=== PATIENT | female | born 1990 | race Caucasian/White ===

== ENCOUNTER 2016-08-01 15:21 | Inpatient (IN) | payer OTHER ==
[~2016-08-01] VITALS: Ht 157.5 cm; Wt 58.2 kg
--- NOTE | 2016-08-01 16:43 | DIAGNOSTIC IMAGING REPORT ---
PROCEDURE: XR CHEST 1 VIEW INDICATION: SHORTNESS OF BREATH TECHNIQUE: Portable AP view 1605 hours. COMPARISON: None. FINDINGS: Allowing for overlying wires and electrodes, lungs are clear. Heart and mediastinum are normal. Thorax is normal. IMPRESSION: 1. Negative chest.
--- NOTE | 2016-08-01 19:39 | ED ORDER SUMMARY ---
..... Patient: TOBIN GOTTI OrderSheet [facility] VisitID: [id number] [place] [address] 26y, F Registration Date/Time: 08/01/2016 ORDER SHEET Weight: 61.2 kg (estimated) Allergies: Aspirin, Cipro, Vicodin GENERAL ORDERS: Rapid Influenza Screen (Nasal Pharyngeal) (SAP TRAINER) Urgent (15:50 08/01/2016 Juan PLEITEZ) (16:06 ABarnum R.N.) Chest 1V Urgent (15:52 08/01/2016 Juan PLEITEZ) (Ack 16:15 LTapper) (18:53 MCampbell) CBC w Diff Urgent (15:53 08/01/2016 Juan PLEITEZ) (15:56 ABarnum R.N.) CMP Urgent (15:53 08/01/2016 Juan PLEITEZ) (15:56 ABarnum R.N.) UA-Culture if indicated Urgent (15:53 08/01/2016 Juan PLEITEZ) (Ack 16:14 LTapper) (17:24 ABarnum R.N.) Amylase Urgent (15:53 08/01/2016 Juan PLEITEZ) (15:56 ABarnum R.N.) Lipase Urgent (15:53 08/01/2016 Juan PLEITEZ) (15:56 ABarnum R.N.) Urine Urgent (15:53 08/01/2016 Juan PLEITEZ) (Ack 16:14 LTapper) (18:28 ABarnum R.N.) Troponin-I Urgent (15:53 08/01/2016 Juan PLEITEZ) (15:56 ABarnum R.N.) Urine Drug Screen Urgent (15:53 08/01/2016 Juan PLEITEZ) (Ack 16:15 LTapper) (17:24 ABarnum R.N.) Chemical Machine Tender (Continuous) (16:10 08/01/2016 Juan PLEITEZ) (16:23 ABarnum R.N.) CPK Urgent (16:11 08/01/2016 Juan PLEITEZ) (Ack 16:14 LTapper) (16:52 ABarnum R.N.) Troponin-I Urgent (16:11 08/01/2016 Juan PLEITEZ) (Ack 16:14 LTapper) (16:52 ABarnum R.N.) Lactate, Serum Urgent (16:11 08/01/2016 Juan PLEITEZ) (Ack 16:14 LTapper) (18:28 ABarnum R.N.) PCT (Procalcitonin) Urgent (16:11 08/01/2016 Juan PLEITEZ) (Ack 16:14 LTapper) (16:52 ABarnum R.N.) EKG - ER Stat (16:11 08/01/2016 Juan PLEITEZ) (Ack 16:17 LTapper) (16:52 ABarnum R.N.) Pulse oximeter (16:11 08/01/2016 Juan PLEITEZ) (16:23 ABarnum R.N.) Oxygen (2 L/min) (NC) (16:11 08/01/2016 Juan PLEITEZ) (16:23 ABarnum R.N.) Blood Culture (No) (N/A) Urgent (18:56 08/01/2016 Juan PLEITEZ) (Ack 19:11 [employer] [facility] Client Resolution Specialist) (19:26 ABarnum R.N.) D-Dimer Urgent (19:08 08/01/2016 Juan PLEITEZ) (Ack 19:11 [employer] [facility] Client Resolution Specialist) (19:26 ABarnum R.N.) CTA Thorax w Cont (No) (N/A) Urgent (20:14 08/01/2016 Juan PLEITEZ) (Ack 20:23 LTapper) (21:04 MCampbell) MEDICATION ORDERS: IV FLUIDS: IV Saline Lock (15:53 08/01/2016 Juan PLEITEZ) (15:56 ABarnum R.N.) IV NS with Normal Saline 1 Liter: initial bolus 1000 mL (1000 mL/hr), then 1000 mL/hr for X1 (NOW); Shane (15:56 08/01/2016 ABarnum R.N. per protocol) (16:06 ABarnum R.N.) Naloxone IV 0.2 mg (NOW) (20:32 08/01/2016 Juan PLEITEZ) (20:39 Gabrielle Parr) ORDER SHEET NOTES: [Electronically signed by Miguel Angel Cedeño MD (16:04 08/02/2016)] [Electronically signed by Celia Velazquez R.N. (15:14 08/15/2016)] [Electronically locked/signed by Celia Velazquez R.N. (15:14 08/15/2016)]
--- NOTE | 2016-08-01 19:39 | ED ORDER SUMMARY ---
..... Patient: TOBIN GOTTI OrderSheet [facility] VisitID: [id number] [place] [address] 26y, F Registration Date/Time: 08/01/2016 ORDER SHEET Weight: 61.2 kg (estimated) Allergies: Aspirin, Cipro, Vicodin GENERAL ORDERS: Rapid Influenza Screen (Nasal Pharyngeal) (TICKET ATTENDANT) Urgent (15:50 08/01/2016 Juan PLEITEZ) (16:06 ABarnum R.N.) Chest 1V Urgent (15:52 08/01/2016 Juan PLEITEZ) (Ack 16:15 LTapper) (18:53 MCampbell) CBC w Diff Urgent (15:53 08/01/2016 Juan PLEITEZ) (15:56 ABarnum R.N.) CMP Urgent (15:53 08/01/2016 Juan PLEITEZ) (15:56 ABarnum R.N.) UA-Culture if indicated Urgent (15:53 08/01/2016 Juan PLEITEZ) (Ack 16:14 LTapper) (17:24 ABarnum R.N.) Amylase Urgent (15:53 08/01/2016 Juan PLEITEZ) (15:56 ABarnum R.N.) Lipase Urgent (15:53 08/01/2016 Juan PLEITEZ) (15:56 ABarnum R.N.) Urine Urgent (15:53 08/01/2016 Juan PLEITEZ) (Ack 16:14 LTapper) (18:28 ABarnum R.N.) Troponin-I Urgent (15:53 08/01/2016 Juan PLEITEZ) (15:56 ABarnum R.N.) Urine Drug Screen Urgent (15:53 08/01/2016 Juan PLEITEZ) (Ack 16:15 LTapper) (17:24 ABarnum R.N.) Client Relations Specialist (Continuous) (16:10 08/01/2016 Juan PLEITEZ) (16:23 ABarnum R.N.) CPK Urgent (16:11 08/01/2016 Juan PLEITEZ) (Ack 16:14 LTapper) (16:52 ABarnum R.N.) Troponin-I Urgent (16:11 08/01/2016 Juan PLEITEZ) (Ack 16:14 LTapper) (16:52 ABarnum R.N.) Lactate, Serum Urgent (16:11 08/01/2016 Juan PLEITEZ) (Ack 16:14 LTapper) (18:28 ABarnum R.N.) PCT (Procalcitonin) Urgent (16:11 08/01/2016 Juan PLEITEZ) (Ack 16:14 LTapper) (16:52 ABarnum R.N.) EKG - ER Stat (16:11 08/01/2016 Juan PLEITEZ) (Ack 16:17 LTapper) (16:52 ABarnum R.N.) Pulse oximeter (16:11 08/01/2016 Juan PLEITEZ) (16:23 ABarnum R.N.) Oxygen (2 L/min) (NC) (16:11 08/01/2016 Juan PLEITEZ) (16:23 ABarnum R.N.) Blood Culture (No) (N/A) Urgent (18:56 08/01/2016 Juan PLEITEZ) (Ack 19:11 [employer] [facility] Human Resources Admin) (19:26 ABarnum R.N.) D-Dimer Urgent (19:08 08/01/2016 Juan PLEITEZ) (Ack 19:11 [employer] [facility] Human Resources Admin) (19:26 ABarnum R.N.) CTA Thorax w Cont (No) (N/A) Urgent (20:14 08/01/2016 Juan PLEITEZ) (Ack 20:23 LTapper) (21:04 MCampbell) MEDICATION ORDERS: IV FLUIDS: IV Saline Lock (15:53 08/01/2016 Juan PLEITEZ) (15:56 ABarnum R.N.) IV NS with Normal Saline 1 Liter: initial bolus 1000 mL (1000 mL/hr), then 1000 mL/hr for X1 (NOW); Shane (15:56 08/01/2016 ABarnum R.N. per protocol) (16:06 ABarnum R.N.) Naloxone IV 0.2 mg (NOW) (20:32 08/01/2016 Juan PLEITEZ) (20:39 Gabrielle Parr) ORDER SHEET NOTES: [Electronically signed by Miguel Angel Cedeño MD (16:04 08/02/2016)] [Electronically signed by Celia Velazquez R.N. (15:14 08/15/2016)] [Electronically locked/signed by Celia Velazquez R.N. (15:14 08/15/2016)]
--- NOTE | 2016-08-01 19:39 | ED NURSING NOTES ---
Clinical Report - Nurses [facility] [address] [place] [address] 08/01/2016 15:22 Patient: TOBIN GOTTI TRIAGE Triage time 1510 pm. Acuity: LEVEL 2. Chief Complaint: FEVER and CHILLS and "HURTS ALL OVER". --15:49 Jake October R.N. 15:15 08/01/16. BP: 120/57. HR: 141. RR: 19. O2 saturation: 100%. Temp: 103.1 F. Pain level now: uncertain. --15:49 Jake October R.N. Weight: 61.2 kg estimated. Height/Length: 64 inches Estimated. BMI: 23.2. --15:47 Jake October RNarcisoN. Medications None. --15:47 Jake October R.N. Allergies Aspirin. Cipro. Vicodin. --15:47 Jake October R.N. History Arrived by EMS. The patient has had a headache and difficulty breathing. PAST MEDICAL HX: Immunizations: status is unknown. ( Patient unable to give complete history utilized last visit from 2013). SOCIAL HX: History of heavy IV drug use: heroin. Recently used drugs just prior to arrival. Under influence in ED. --15:49 Jake October RNarcisoN. ( EMS reported that ETCO2 was 35 on arrival Cardiac Rhythm was Sinus Tachycardic.Temperature was 103.5 no change in route. [place] found down at [place] [facility] Shortness of breath chief complaint.). --15:54 Jake October RNarcisoN. PROBLEMS: Heroin dependence. --15:47 Jake October R.N. Interventions ID band on patient. To treatment room. --15:49 Jake October R.N. PHYSICAL ASSESSMENT To room via stretcher. GENERAL / NEURO / PSYCH: Alert. Appears in pain and in distress. The patient is disoriented to person and place. She has had pain-related weakness. HEENT: Mucous membranes are pink. RESPIRATORY: Breath sounds within normal limits. CVS: Normal sinus rhythm noted. Capillary refill less than 2 seconds. Pulses within normal limits. GI / : Abdomen soft and nontender and normal bowel sounds. SKIN: Skin is warm and dry. ( Multiple open and healing wounds different sites on her body. Mainly on her arms and hands. Last stated use of Heroin or unknown substance was about 2 pm today (EMS) states). --15:52 Tiara Joseph R.N. NURSING PROGRESS NOTES Oxygen administered. cardiac monitor technician, pulse oximeter and NIBP monitor placed on patient; air sampling and monitoring- Lead II and V5; monitor alarms on. Patient gowned. Head of bed elevated. Reassurance given. Two patient identifiers checked. Call light placed in reach. Side rails up x 2. Bed placed in lowest position. Brakes of bed on. Patient ready for evaluation- chart flagged. --15:52 Tiara Joseph R.N. ( Attempted 2 IV starts Right Arm. Unsuccessful. See placement by ARIELA RN). --15:55 Jake OctoberKeshav 15:30 08/01/2016 Site #1 started via IV in the left forearm with an 20g angiocath, with aseptic technique and good blood return; one attempt. Blood drawn: rainbow set. Labeled in the presence of the patient and sent to the lab. Saline lock flushed with 10 mL saline. --15:55 Jake OctoberKeshav 15:59 08/01/16. BP: 96/49. HR: 141. RR: 17. O2 saturation: 98%. --16:00 Jake OctoberKeshav 15:41 08/01/2016 Started bag #1 1000 mL IV Fluids IV NS (Saline); bolus of 1000 mL over 1 hour(s) via site #1 via IV pump. Allergies verified and confirmed 5 rights. IV patency established. IV site checked: no pain, redness, or swelling. IV flushed thoroughly pre- and post-medication administration. --16:06 Jake TiaraKeshav 16:35 08/01/16. BP: 115/69. HR: 137. RR: 18. O2 saturation: 96%. --16:35 Tiara Joseph R.N. EKG time: (5486). EKG was performed by a eri and shown to the ED physician. --16:37 Tonja Edwards cardiac monitor technician, pulse oximeter and NIBP monitor placed on patient; air sampling and monitoring- Lead II and V5; monitor alarms on. Patient gowned. Reassurance given. Lights dimmed. Two patient identifiers checked. Call light placed in reach. Side rails up x 2. Bed placed in lowest position. Brakes of bed on. --16:51 Jakeoctober, R.N. 16:50 08/01/16. BP: 93/41. HR: 142. RR: 15. O2 saturation: 98%. --16:51 October, R.N. 16:42 08/01/2016 IV Fluids IV NS Bag Change: bag #1 completed. Total amount infused: 1000. STARTED bag #2 (1000 mL) at 1000 mL/hr via IV pump. Confirmed 5 rights. IV patency established. IV site checked: no pain, redness, or swelling. IV flushed thoroughly. --16:52 Dukeoctober, R.N. 16:59 08/01/2016 IV Fluids IV NS Bag Change: bag #2 completed. Total amount infused: 1000. STARTED bag #3 (1000 mL) at 1000 mL/hr via IV pump. Confirmed 5 rights. IV patency established. IV site checked: no pain, redness, or swelling. IV flushed thoroughly. --17:24 Jakeoctober, R.N. 17:57 08/01/16. BP: 92/30. HR: 138. RR: 15. O2 saturation: 93%. Temp: 101.8 F. --17:57 Dukeoctober, R.N. 19:11 08/01/2016 IV Fluids IV NS Discontinued: bag #3 completed. Total amount infused: 1000 mL. IV patency established. IV site checked: no pain, redness, or swelling. IV flushed thoroughly. --19:26 Dukeoctober, R.N. cardiac monitor technician, pulse oximeter and NIBP monitor placed on patient; air sampling and monitoring- Lead II and V5; monitor alarms on. Patient gowned. Reassurance given. Assisted patient with bedpan; tolerated well. Lights dimmed. Two patient identifiers checked. Call light placed in reach. Side rails up x 2. Bed placed in lowest position. Brakes of bed on. --20:05 Tiara Joseph R.N. 20:04 08/01/16. BP: 109/58. HR: 126. RR: 21. O2 saturation: 97%. Temp: 100.8 F. --20:05 Tiara Joseph R.N. 20:37 08/01/2016 Naloxone IVP 0.2 mg given over 1 minute(s) via site #1. Allergies verified and confirmed 5 rights. IV patency established. IV site checked: no pain, redness, or swelling. IV flushed thoroughly pre- and post-medication administration. IVP given by RN. --20:39 Catherine Jaime R.N. ( Assisted patient clean up of BM). --21:10 Tiara Joseph R.N. DISPOSITION / DISCHARGE Report was given to a nurse via a phone call. Report included patient's care, treatment, medications, reviewed medication reconcilliation, and condition (including any recent changes or anticipated changes). All questions were answered. Report was acknowledged. (Jonathan). Bed obtained and ready (204 A). --20:51 Tiara Joseph R.N. 21:05 08/01/2016 Naloxone IVP Response: no adverse reaction. --21:15 Tiara Joseph R.N. 21:15 08/01/2016 IV Saline Lock Drip IV Discontinued: upon admission. --21:15 Tiara Joseph R.N. 21:16 08/01/2016 Site #[address] upon admission. Converted to saline lock. --21:16 Tiara Joseph R.N. Departure time: 2115 pm. Transported via stretcher by transport team with IV. --21:16 Tiara Joseph R.N. Locked/Released at 08/15/2016 15:14 by Celia Velazquez R.N.
--- NOTE | 2016-08-01 19:39 | ED NURSING NOTES ---
Clinical Report - Nurses [facility] [address] [place] [address] 08/01/2016 15:22 Patient: TOBIN GOTTI TRIAGE Triage time 1510 pm. Acuity: LEVEL 2. Chief Complaint: FEVER and CHILLS and "HURTS ALL OVER". --15:49 Jake October R.N. 15:15 08/01/16. BP: 120/57. HR: 141. RR: 19. O2 saturation: 100%. Temp: 103.1 F. Pain level now: uncertain. --15:49 Jake October R.N. Weight: 61.2 kg estimated. Height/Length: 64 inches Estimated. BMI: 23.2. --15:47 Jake October RNarcisoN. Medications None. --15:47 Jake October R.N. Allergies Aspirin. Cipro. Vicodin. --15:47 Jake October R.N. History Arrived by EMS. The patient has had a headache and difficulty breathing. PAST MEDICAL HX: Immunizations: status is unknown. ( Patient unable to give complete history utilized last visit from 2013). SOCIAL HX: History of heavy IV drug use: heroin. Recently used drugs just prior to arrival. Under influence in ED. --15:49 Jake October RNarcisoN. ( EMS reported that ETCO2 was 35 on arrival Cardiac Rhythm was Sinus Tachycardic.Temperature was 103.5 no change in route. Was found [place] [facility] Shortness of breath chief complaint.). --15:54 Jake October RNarcisoN. PROBLEMS: Heroin dependence. --15:47 Jake October R.N. Interventions ID band on patient. To treatment room. --15:49 Jake October R.N. PHYSICAL ASSESSMENT To room via stretcher. GENERAL / NEURO / PSYCH: Alert. Appears in pain and in distress. The patient is disoriented to person and place. She has had pain-related weakness. HEENT: Mucous membranes are pink. RESPIRATORY: Breath sounds within normal limits. CVS: Normal sinus rhythm noted. Capillary refill less than 2 seconds. Pulses within normal limits. GI / : Abdomen soft and nontender and normal bowel sounds. SKIN: Skin is warm and dry. ( Multiple open and healing wounds different sites on her body. Mainly on her arms and hands. Last stated use of Heroin or unknown substance was about 2 pm today (EMS) states). --15:52 Tiara Joseph R.N. NURSING PROGRESS NOTES Oxygen administered. cardiac monitor technician, pulse oximeter and NIBP monitor placed on patient; cardiac monitor technician- Lead II and V5; monitor alarms on. Patient gowned. Head of bed elevated. Reassurance given. Two patient identifiers checked. Call light placed in reach. Side rails up x 2. Bed placed in lowest position. Brakes of bed on. Patient ready for evaluation- chart flagged. --15:52 Tiara Joseph R.N. ( Attempted 2 IV starts Right Arm. Unsuccessful. See placement by ARIELA RN). --15:55 Jake OctoberKeshav 15:30 08/01/2016 Site #1 started via IV in the left forearm with an 20g angiocath, with aseptic technique and good blood return; one attempt. Blood drawn: rainbow set. Labeled in the presence of the patient and sent to the lab. Saline lock flushed with 10 mL saline. --15:55 Jake OctoberKeshav 15:59 08/01/16. BP: 96/49. HR: 141. RR: 17. O2 saturation: 98%. --16:00 Jake OctoberKeshav 15:41 08/01/2016 Started bag #1 1000 mL IV Fluids IV NS (Saline); bolus of 1000 mL over 1 hour(s) via site #1 via IV pump. Allergies verified and confirmed 5 rights. IV patency established. IV site checked: no pain, redness, or swelling. IV flushed thoroughly pre- and post-medication administration. --16:06 Jake TiaraKeshav 16:35 08/01/16. BP: 115/69. HR: 137. RR: 18. O2 saturation: 96%. --16:35 Tiara Joseph R.N. EKG time: (1189). EKG was performed by a eri and shown to the ED physician. --16:37 Tonja Edwards cardiac monitor technician, pulse oximeter and NIBP monitor placed on patient; cardiac monitor technician- Lead II and V5; monitor alarms on. Patient gowned. Reassurance given. Lights dimmed. Two patient identifiers checked. Call light placed in reach. Side rails up x 2. Bed placed in lowest position. Brakes of bed on. --16:51 Jakeoctober, R.N. 16:50 08/01/16. BP: 93/41. HR: 142. RR: 15. O2 saturation: 98%. --16:51 October, R.N. 16:42 08/01/2016 IV Fluids IV NS Bag Change: bag #1 completed. Total amount infused: 1000. STARTED bag #2 (1000 mL) at 1000 mL/hr via IV pump. Confirmed 5 rights. IV patency established. IV site checked: no pain, redness, or swelling. IV flushed thoroughly. --16:52 [place] Rapid[place]ober, R.N. 16:59 08/01/2016 IV Fluids IV NS Bag Change: bag #2 completed. Total amount infused: 1000. STARTED bag #3 (1000 mL) at 1000 mL/hr via IV pump. Confirmed 5 rights. IV patency established. IV site checked: no pain, redness, or swelling. IV flushed thoroughly. --17:24 Jakeoctober, R.N. 17:57 08/01/16. BP: 92/30. HR: 138. RR: 15. O2 saturation: 93%. Temp: 101.8 F. --17:57 [place] Rapid[place]ober, R.N. 19:11 08/01/2016 IV Fluids IV NS Discontinued: bag #3 completed. Total amount infused: 1000 mL. IV patency established. IV site checked: no pain, redness, or swelling. IV flushed thoroughly. --19:26 [place], R.N. cardiac monitor technician, pulse oximeter and NIBP monitor placed on patient; cardiac monitor technician- Lead II and V5; monitor alarms on. Patient gowned. Reassurance given. Assisted patient with bedpan; tolerated well. Lights dimmed. Two patient identifiers checked. Call light placed in reach. Side rails up x 2. Bed placed in lowest position. Brakes of bed on. --20:05 Tiara Joseph R.N. 20:04 08/01/16. BP: 109/58. HR: 126. RR: 21. O2 saturation: 97%. Temp: 100.8 F. --20:05 Tiara Joseph R.N. 20:37 08/01/2016 Naloxone IVP 0.2 mg given over 1 minute(s) via site #1. Allergies verified and confirmed 5 rights. IV patency established. IV site checked: no pain, redness, or swelling. IV flushed thoroughly pre- and post-medication administration. IVP given by RN. --20:39 Catherine Jaime R.N. ( Assisted patient clean up of BM). --21:10 Tiara Joseph R.N. DISPOSITION / DISCHARGE Report was given to a nurse via a phone call. Report included patient's care, treatment, medications, reviewed medication reconcilliation, and condition (including any recent changes or anticipated changes). All questions were answered. Report was acknowledged. (Jonathan). Bed obtained and ready (204 A). --20:51 Tiara Joseph R.N. 21:05 08/01/2016 Naloxone IVP Response: no adverse reaction. --21:15 Tiara Joseph R.N. 21:15 08/01/2016 IV Saline Lock Drip IV Discontinued: upon admission. --21:15 Tiara Joseph R.N. 21:16 08/01/2016 Site #[address] upon admission. Converted to saline lock. --21:16 Tiara Joseph R.N. Departure time: 2115 pm. Transported via stretcher by transport team with IV. --21:16 Tiara Joseph R.N. Locked/Released at 08/15/2016 15:14 by Celia Velazquez R.N.
--- NOTE | 2016-08-01 19:39 | ED CLINICAL REPORT ---
Clinical Report - Physicians/Mid Levels [facility] [address] [place] [address] 08/01/2016 15:22 Patient: TOBIN GOTTI Time Seen: 15:49. Arrived- By private vehicle. Historian- patient. History limited by altered mental status, poor cooperation and intoxication. Physical Exam limited by poor cooperation and intoxication. HISTORY OF PRESENT ILLNESS Chief Complaint: DYSPNEA. This started unknown and is still present. The dyspnea is severe. The patient has experienced sweating episodes and had chest discomfort and chills. No foot swelling. (The patent has a history of substance abuse and was apparently using heroin earlier today. She has had decreased mental status and was reportedly having trouble breathing. She also apparently hurts "all over"). REVIEW OF SYSTEMS Unobtainable due to patient's altered mental status and uncooperativeness. PAST HISTORY Problems: Heroin dependence. Abscess. Lifestyle / Substance Problems. Cellulitis. Impetigo [Resolved]. Additional Surgeries: Appendectomy. Laparotomy. Medications: None. Allergies: Aspirin. Cipro. Vicodin. SOCIAL HISTORY History of heavy IV drug use: heroin. Recently used drugs just prior to arrival. Under influence in ED. FAMILY HISTORY Unable to obtain family medical history due to patient's altered mental status. ADDITIONAL NOTES The nursing notes have been reviewed. PHYSICAL EXAM Vital Signs: 08/01/2016 15:15 BP: 120/57. HR: 141. RR: 19. O2 saturation: 100%. Temp: 103.1 F. Have been reviewed. Appearance: The patient is somnolent and appears unkempt. Eyes: Pupils equal, round and reactive to light. ENT: Pharynx normal. Neck: Normal inspection. No jugular venous distention. CVS: 1/6 systolic murmur. Respiratory: Decreased air movement. Abdomen: Soft and nontender. No organomegaly. Back: Normal inspection. Skin: Skin warm and dry. Extremities: No lower extremity edema. No calf tenderness. Neuro: Altered mental status: stuporous. LABS, X-RAYS, AND EKG EKG: Rate: 139. Non-specific ST segment / T wave abnormalities. Chest X-ray: No acute disease. The X-rays were interpreted by the radiologist and contemporaneously by me. Chest CT: (1. There are mild multifocal parenchymal changes throughout the lungs (ground-glass mosaic pattern). While findings are nonspecific, consider reactive airway disease, hypersensitivity pneumonitis, or interstitial pneumonia (e.g., Mycoplasma, Pneumocystis, viral). 2. Normal pulmonary vessels. No evidence of pulmonary embolus. 3. Marked mucosal thickening of the mid and distal thoracic esophagus compatible with reflux esophagitis.). The study was interpreted contemporaneously by me and discussed with the radiologist. Laboratory Tests: UA-Culture if indicated: (DEISY: 08/01/2016 17:20) ( [facility] [place] [facility] [facility] Final results Test Result Flag Units (Reference) URINE COLOR YELLOW URINE APPEARANCE CLEAR URINE GLUCOSE NEGATIVE (NEGATIVE) URINE BILIRUBIN NEGATIVE (NEGATIVE) URINE KETONE NEGATIVE (NEGATIVE) URINE SPECIFIC GRAVITY <= 1.005 L (1.010-1.030) URINE PH 5.5 (5.0-8.0) URINE PROTEIN NEGATIVE (NEGATIVE) URINE UROBILINOGEN 0.2 EU/dL (0.2-1.0) URINE NITRITE NEGATIVE (NEGATIVE) URINE BLOOD TRACE-LYSED (NEGATIVE) URINE LEUK ESTERASE NEGATIVE (NEGATIVE) URINE RBC 0-1 rbc/hpf (0-1) URINE WBC 0-1 wbc/hpf (0-1) URINE EPITHELIAL CELLS 1-3 EPI/hpf (0-5) URINE BACTERIA TRACE (<1+) (NONE SEEN) URINE COMMENT CULT NOT INDICATED URINE CULTURES ARE SET-UP BASED ON THE FOLLOWING CRITERIA:POSITIVE NITRITEPOSITIVE LEUKOCYTE ESTERASEGREATER THAN 10 WHITE BLOOD CELLSMODERATE (2+) OR GREATER BACTERIA Urine: (DEISY: 08/01/2016 17:20) ( [facility] [place] 17:43) Final results Test Result Flag Units (Reference) URINE NEGATIVE CBC w Diff: (DEISY: 08/01/2016 15:40) ( M[facility] 08/01/2016 16:21) Final results Test Result Flag Units (Reference) WHITE BLOOD COUNT 5.9 K/uL (4.5-11.5) RED BLOOD COUNT 4.11 M/uL (4.00-5.20) HEMOGLOBIN 11.7 L gm/dL (12.0-16.0) HEMATOCRIT 35.2 L % (36.0-46.0) MEAN CELL VOLUME 86 fL (80-100) MEAN CORPUSCULAR HGB 28 pg (26-34) MEAN CORPUSCULAR HGB CONC 33 g/dL (31-37) RED CELL DISTRIBUTION WIDTH 13.5 % (11.6-14.8) PLATELET COUNT 214 K/uL (150-400) NEUTROPHIL % 91.9 H % (50-75) LYMPH % 7.8 L % (25-40) MONO % 0 L % (3-14) EOSINOPHIL % 0.2 % (0-4) BASOPHIL % 0.1 % (0-2) [id number]: (DEISY: 08/01/2016 15:40) ( [facility] [place] [facility] 19:20) Final results Test Result Flag Units (Reference) D-DIMER QUANTITATIVE 3.11 H ug/mLFEU (0.27-0.52) The primary value of this quantitative assay relates toits negative predictive value (i.e. exclusion) of pulmonaryembolism/deep vein thrombosis/DIC.Elevated levels of d-dimer may also occur with:, age, cancer, inflammation, liver disease,post-op, infection, hematoma, coronary disease, peripheralarteriopathy, bleeding disorders and thrombolytic treatment.Results should be correlated with other clinical andradiological data.Testing Methodology: Latex Immunoassay Lactate, Serum: (DEISY: 08/01/2016 18:25) ( [facility] [place] 08/01/2016 18:53) Final results Test Result Flag Units (Reference) LACTIC ACID 1.3 mmol/L (0.4-2.0) [id number]: (DEISY: 08/01/2016 15:40) ( [facility] [place] 08/01/2016 16:52) Final results Test Result Flag Units (Reference) PROCALCITONIN 12.3 H ng/mL (0-0.5) PCT Concentration: Interpretation : Risk/option for action PCT <=0.5 ng/mL : Systemic : Low risk forinfection(sepsis): progression to severeis not likely. : systemic infection.Local bacterial : CAUTION-PCT levelsinfection is : below 0.5 ng/mL do notpossible. : exclude an infection,because localizedinfections (withoutsystemic signs) may beassociated with suchlow levels. If PCT ismeasured very earlyafter a bacterialchallenge (usually <6hours), these valuesmay still be low. Inthis case PCT shouldbe re-assessed 6-24hours later. PCT >0.5 and : Systemic infection: Moderate risk for<= 2 ng/mL : (sepsis) is : progression to severepossible, but : systemic infection.other conditions : The patient should beare known to : closely monitoredelevate PCT. : both clinically andby re-assessing PCTwithin 6-24 hours. PCT > 2 ng/mL : Systemic infection: High risk for(sepsis) is likely: progression to severeunless other : systemic infection.causes are known. : PCT >= 10 ng/mL : Important systemic: High likelihood ofinflammatory : severe sepsis orresponse, almost : septic shock.exclusively due to:severe bacterial :sepsis or septic :shock. : CPK: (DEISY: 08/01/2016 15:40) ( [facility] 08/01/2016 16:42) Final results Test Result Flag Units (Reference) CPK 179 U/L (24-260) TROPONIN I <0.05 ng/mL (0.00-1.5) TROPONIN REFERENCE RANGE:<0.1 NEGATIVE0.1-1.5 INDETERMINANT>1.5 POSITIVE Urine Drug Screen: (DEISY: 08/01/2016 17:20) ( [facility] 08/01/2016 17:50) Final results Test Result Flag Units (Reference) AMPHETAMINE/METHAMPHETAMINE POSITIVE H (NEGATIVE) BARBITURATE NEGATIVE (NEGATIVE) BENZODIAZEPINE NEGATIVE (NEGATIVE) CANNABINOID NEGATIVE (NEGATIVE) COCAINE NEGATIVE (NEGATIVE) ECSTASY NEGATIVE (NEGATIVE) METHADONE NEGATIVE (NEGATIVE) OPIATE POSITIVE H (NEGATIVE) The urine drug screen is a qualitative screening test fordrug overdose and abuse. All screen results should beconsidered as presumptive.Drugs screened for are as follows:BenzodiazepinesCocaineAmphetamines/MetamphetaminesTHC (Tetrahydrocannabinol)OpiatesBarbituratesEcstasyMethadonePositive results are unconfirmed. For confirmation, notifythe lab for the specimen to be sent to the reference lab.All confirmations must be performed by a differentmethodology.The ingestion of natural herbal and plant productscontaining Ephedra/Ephedra metabolites can produce in urineone or more substances capable of cross reacting withamphetamine/methamphetamine immunoassays. These testsprovide a preliminary result only. A more specificalternative chemical method must be used to obtain aconfirmed analytical result. CMP: (DEISY: 08/01/2016 15:40) ( [facility] 08/01/2016 16:42) Final results Test Result Flag Units (Reference) GLUCOSE 92 mg/dL (70-110) BUN 14 mg/dL (7-18) CREATININE 0.9 mg/dL (0.6-1.3) Estimated GFR >60 mL/min Estimated GFR- >60 mL/min Note: Persistent reduction over 3 months in eGFR<60 mL/min/1.73 m2 defines CKD. Patients with eGFR values>=60 mL/min/1.73 m2 may also have CKD if evidence ofpersistent proteinuria. Additional information may be foundat [email or web address].org. SODIUM 140 mmol/L (136-145) POTASSIUM 3.2 L mmol/L (3.5-5.1) CHLORIDE 106 mmol/L (98-107) CARBON DIOXIDE 26 mmol/L (21-32) CALCIUM 8.5 mg/dL (8.5-10.1) TOTAL PROTEIN 6.7 g/dL (6.4-8.2) ALBUMIN 3.2 L g/dL (3.3-5.0) BILIRUBIN, TOTAL 1.0 mg/dL (0.0-1.0) ALKALINE PHOSPHATASE 160 H U/L (46-116) AST (SGOT) 59 H U/L (15-37) ALT (SGPT) 24 U/L (12-78) LIPASE 2 L U/L (73-393) TROPONIN I 0.23 ng/mL (0.00-1.5) TROPONIN REFERENCE RANGE:<0.1 NEGATIVE0.1-1.5 INDETERMINANT>1.5 POSITIVE AMYLASE 23 L U/L (25-115) Rapid Influenza Screen: (DEISY: 08/01/2016 16:05) ( [facility]cv[facility] 08/01/2016 16:24) Final results SPECIMEN DESCRIPTION: CRYPTOLOGIC SUPERVISOR Test Result Flag Units (Reference) RAPID INFLUENZA SCREEN DATE: 08/01/16 INFLUENZA A: NEGATIVE SCREEN FOR INFLUENZA A INFLUENZA B: NEGATIVE SCREEN FOR INFLUENZA B . PROGRESS AND PROCEDURES Discussed case with on-call health care provider, (Timur). Reviewed test results and need for additional work-up. Agreed upon treatment plan, need for patient follow-up and decision to admit. Old medical records reviewed. Differential Diagnosis: Other possible considerations: asthma exac, pneumonia, pneumo, bronchitis. Above considerations are based on history, physical exam, laboratory data and X-Ray data. Differential diagnosis was discussed with patient. Disposition: Admitted. CLINICAL IMPRESSION Abnormal tests: (elevated procalcitonin). Substance abuse. (pneumonitis). cardiac murmur. (Electronically signed by Miguel Angel Cedeño MD 08/02/2016 16:04)
[2016-08-01 21:31] VITALS: BP 103/57
--- NOTE | 2016-08-01 21:34 | Progress Note ---
Subjective General Patient is a 26 y.o. female that presented with fevers, sob, and IVDU slight murmur. Plan: check on ct pulm angiogram when she is cooperative and alert, treat with IV abx, anti coagulation.
--- NOTE | 2016-08-01 21:48 | HISTORY AND PHYSICAL ---
ADMITTED: 08/01/2016 PRIMARY CARE PROVIDER: None. CHIEF COMPLAINT: 1. Fevers, chills, hurts all over HISTORY OF PRESENT ILLNESS: The patient is a 26-year-old female with the known history of polysubstance abuse, who presented to the emergency department with fevers, chills and hurting all over. She had a workup in the emergency department that included a CBC, CMP, CPK, troponin, procalcitonin, D-dimer, influenza, chest x-ray, drug screen, lactic acid. Of note, her CBC was within normal limits. Her comprehensive metabolic panel was notable for some mild elevation in alk phos, but otherwise unremarkable. CPK and troponin I normal. Procalcitonin came back markedly elevated at 12.3 and D-dimer at 3.11. She had a lactic acid that was 1.3. Urine negative and a urine drug screen that was positive for amphetamine, as well as opiates. With a positive procalcitonin and the substance abuse including IV opiates, decision was made for observation and monitoring, blood cultures for a couple days, treat with IV antibiotics in case of possible infection, valvular disease, and I was called for the emergency department for evaluation. MEDICAL/SURGICAL HISTORY: Past medical history: She has had depression and reactive airways disease. She has had past surgeries of abscesses. MEDICATIONS: 1. She is not taking any. 2. ALLERGIES: 1. ASPIRIN. 2. CIPRO. 3. VICODIN. SOCIAL HISTORY: She has got heavy IV drug use with heroin and recently used just prior to arrival. She has also had some alcohol and amphetamine use as well. FAMILY HISTORY: Notable for mom with ovarian cysts. REVIEW OF SYSTEMS: Notable for the chills and she had a fever as well to 103 en route. She was with shaking chills. She denies diarrhea. She does have the fever, body aches. Currently she is trying to sleep and is feeling sleepy and is not cooperative with my questions or allowing me to do a thorough examination. PHYSICAL EXAMINATION: GENERAL: She is a sleepy-appearing female who responds to me, but mostly is leave me alone. VITAL SIGNS: Her blood pressure 120/57, heart rate of 141. She had a temperature of 103.1, saturating 100% with the respirations of 19. HEENT: She is responsive. Her pupils appear equal, round, reactive. NECK: Supple, able to be flexed without resistance. HEART: Regular rate and rhythm, possible very soft murmur at the right upper sternal border. LUNGS: Clear to auscultation bilaterally. ABDOMEN: Soft and nontender. EXTREMITIES: Some superficial sores and redness on her lower extremities with possibility of low-grade infection, but it does not really appear cellulitic actively and no apparent abscesses on my initial evaluation. PSYCHIATRIC: At this point, she mostly appears sleepy and not really cooperative with her questioning. LAB/IMAGING: Laboratories: CBC: White count of 9.5, hematocrit of 35.2, platelets of 214,000. Comprehensive metabolic panel: Glucose of 92, BUN of 14, creatinine of 0.9, sodium 140, potassium 3.2, chloride 106, HCO3 26, calcium of 8.5, total protein 6.9. Albumin 3.2, bili 1.0, alk phos 160, AST of 59, ALT of 24, lipase 2, amylase 23. Troponin I is 0.23, but also at the same time a different lab sample shows a troponin I of less than 0.05. Procalcitonin was 12.3. D-dimer 3.11. Flu was negative for A and B. Urinalysis was negative. Urine negative. Urine drug screen positive for amphetamine, methamphetamine, positive opiates, otherwise negative. Lactic acid 1.3. Chest x-ray: Showed negative chest. CT pulm angiogram neg for PE. Some non specific ground glass appearing findings and thickened esophogus. IMPRESSION: 1. This is a 26-year-old female with polysubstance abuse history, who presents with chills and fever. She has got a positive procalcitonin, the normal white count and normal lactic acid. PLAN: We will admit her for blood cultures, inpatient and as I expect, we will watch her for a couple days, with her elevated fevers watch this come back down, treat her with ceftriaxone and vancomycin pending blood cultures. If blood cultures positive, likely will need transfer to institution that allows for transesophageal echocardiogram. With her history of polysubstance, we will also treat her with methadone once she awake, as short-term management at 20 mg t.i.d.
--- NOTE | 2016-08-01 21:51 | DIAGNOSTIC IMAGING REPORT ---
PROCEDURE: CTA THORAX WITH CONTRAST INDICATION: SHORTNESS OF BREATH TECHNIQUE: 84 mL of Isovue 370 was injected intravenously and axial images were obtained of the entire thorax with 3D sagittal and coronal MIP reconstructions. COMPARISON: Compared to chest x-ray earlier today (08/01/2016). FINDINGS: There are mild multifocal parenchymal changes in the lungs (ground-glass mosaic pattern). Lungs are otherwise clear. Pulmonary vessels are normal and there is no evidence of pulmonary embolus. There is moderate to marked mucosal thickening of the mid and distal esophagus. Mediastinum is otherwise normal. Heart is of normal size. Thorax is normal. IMPRESSION: 1. There are mild multifocal parenchymal changes throughout the lungs (ground-glass mosaic pattern). While findings are nonspecific, consider reactive airway disease, hypersensitivity pneumonitis, or interstitial pneumonia (e.g., Mycoplasma, Pneumocystis, viral). 2. Normal pulmonary vessels. No evidence of pulmonary embolus. 3. Marked mucosal thickening of the mid and distal thoracic esophagus compatible with reflux esophagitis. 4. Fine discussed with Dr. Miguel Angel Cedeño and Dr. Ifeanyi Ding. All CT scans at this facility use dose modulation, iterative reconstruction, and/or weight-based dosing when appropriate to reduce radiation dose to as low as reasonably achievable.
[2016-08-02 02:39] VITALS: BP 123/70
[2016-08-02 06:20] VITALS: BP 119/67
[2016-08-02 09:47] VITALS: BP 104/71
--- NOTE | 2016-08-15 15:15 | ED MED RECONCILIATION SUMMARY ---
Patient: TOBIN GOTTI Medication Reconciliation Report [facility] VisitID: [id number] [address] [place] [address] 26y, F Registration Date/Time: 08/01/2016 Weight: 61.2 kg Height/Length: 64 in. BMI: 23.2 ALLERGIES: Aspirin, Cipro, Vicodin The patient's Home Medications are listed below: NONE. The source(s) of the original Home Medication information: Not obtained. The following Medications were given to the patient in the Emergency Department: IV NS IV Fluids bolus 1000 mL over 1 hour(s), administered: 08/01/2016 3:41:00 PM Naloxone [IVP] IVP 0.2 mg, administered: 08/01/2016 8:37:00 PM The following Medications were prescribed to the patient: None.
--- NOTE | 2016-08-15 15:15 | ED MED RECONCILIATION SUMMARY ---
Patient: TOBIN GOTTI Medication Reconciliation Report [facility] VisitID: [id number] [address] [place] [address] 26y, F Registration Date/Time: 08/01/2016 Weight: 61.2 kg Height/Length: 64 in. BMI: 23.2 ALLERGIES: Aspirin, Cipro, Vicodin The patient's Home Medications are listed below: NONE. The source(s) of the original Home Medication information: Not obtained. The following Medications were given to the patient in the Emergency Department: IV NS IV Fluids bolus 1000 mL over 1 hour(s), administered: 08/01/2016 3:41:00 PM Naloxone [IVP] IVP 0.2 mg, administered: 08/01/2016 8:37:00 PM The following Medications were prescribed to the patient: None.
--- NOTE | 2016-08-15 15:15 | ED DISCHARGE INSTRUCTIONS ---
Patient: TOBIN GOTTI General Instructions [facility] VisitID: [id number] [address] [place] [address] 26y, F Registration Date/Time: 08/01/2016 Abnormal tests: (elevated procalcitonin). Substance abuse. (pneumonitis). cardiac murmur. (Electronically signed by Miguel Angel Cedeño MD 08/02/2016 16:04)
--- NOTE | 2016-08-15 15:15 | ED DISCHARGE INSTRUCTIONS ---
Patient: TOBIN GOTTI General Instructions [facility] VisitID: [id number] [address] [place] [address] 26y, F Registration Date/Time: 08/01/2016 Abnormal tests: (elevated procalcitonin). Substance abuse. (pneumonitis). cardiac murmur. (Electronically signed by Miguel Angel Cedeño MD 08/02/2016 16:04)
--- NOTE | 2016-08-15 15:15 | ED MAR SUMMARY ---
..... Medication Administration Record [facility] [address] [place] [address] Patient: TOBIN GOTTI Visit ID: [id number] 26y, F Weight: 61.2 kg Height/Length: 64 in BMI: 23.2 ALLERGIES: Aspirin, Cipro, Vicodin Start 15:41 08/01/2016 Tiara Joseph R.N., Stop 19:11 08/01/2016 Tiara Joseph R.N. Medication Administered: IV NS (SALINE), Dose: IV Fluids, Bolus: 1000 mL over 1 hour(s), Dispensed: 1000 mL bag, Site: #1 left forearm. Medication Ordered: IV NS with Normal Saline 1 Liter: initial bolus 1000 mL (1000 mL/hr), then 1000 mL/hr for X1 (NOW); Shane. Given 20:37 08/01/2016 Catherine Jaime R.N. Medication Administered: NALOXONE [IVP], Dose: 0.2 mg IVP over 1 minute(s), Site: #1 left forearm. Medication Ordered: Naloxone IV 0.2 mg (NOW).
--- NOTE | 2016-08-15 15:15 | ED MAR SUMMARY ---
..... Medication Administration Record [facility] [address] [place] [address] Patient: TOBIN GOTTI Visit ID: [id number] 26y, F Weight: 61.2 kg Height/Length: 64 in BMI: 23.2 ALLERGIES: Aspirin, Cipro, Vicodin Start 15:41 08/01/2016 Tiara Joseph R.N., Stop 19:11 08/01/2016 Tiara Joseph R.N. Medication Administered: IV NS (SALINE), Dose: IV Fluids, Bolus: 1000 mL over 1 hour(s), Dispensed: 1000 mL bag, Site: #1 left forearm. Medication Ordered: IV NS with Normal Saline 1 Liter: initial bolus 1000 mL (1000 mL/hr), then 1000 mL/hr for X1 (NOW); Shane. Given 20:37 08/01/2016 Catherine Jaime R.N. Medication Administered: NALOXONE [IVP], Dose: 0.2 mg IVP over 1 minute(s), Site: #1 left forearm. Medication Ordered: Naloxone IV 0.2 mg (NOW).
== END 2016-08-02 10:30 | disposition left against medical advice (07) | DRG 139 ==
LOC: ED SRH 15:21 → TRANS SRH 20:18 → ACUTE3 SRH 21:57 → ACUTE2 SRH 22:25 → ACUTE3 SRH 08-02 01:55
PROVIDERS: ADMIT Emergency Medicine
DX: J18.9 Pneumonia, unspecified organism (principal); J12.9 Viral pneumonia, unspecified; R01.1 Cardiac murmur, unspecified; F11.120 Opioid abuse with intoxication, uncomplicated; F15.120 Other stimulant abuse with intoxication, uncomplicated
CPT/HCPCS: 90004; 90047; 90065; 90074; 90100; 90616; 91400; 91556; 91643; 91672; 92031; 92132; 92235; 92530; 92610; 92760; 92761; 92762; 92763; 92764; 92765; 92766; 92767; 93004; 93070; 95059